=== PATIENT | male | born 1950 | race Caucasian/White ===

== ENCOUNTER 2023-10-19 18:22 | Observation (INO) | payer OTHER ==
[2023-10-19 20:34] LABS: BASO % 0.9 % (0-2.0); EOS % 0.9 % (0-4.5); HEMATOCRIT 44.9 % (35.4-49); HEMOGLOBIN 15.2 GM/dL (11.7-16.9); MCH 29.8 pg (25.7-33.7); MCHC 33.9 g/dl (32.0-35.9); MEAN CELL VOLUME 87.9 fl (80-96); MEAN PLT VOLUME 9.6 fl (7.5-11.1); MONO % 8.4 % (3.8-10.2); NEUT % 61.8 % (42.8-82.8); PLATELET COUNT 358 10^3/uL (134-434); RBC 5.11 M/mm3 (4.00-5.60); RDW 14.5 % (11.9-15.9); WHITE BLOOD COUNT 14.5 K/mm3 (4.0-10.0)
[2023-10-19 21:13] LABS: POTASSIUM 4.2 mmol/L (3.5-5.1)
[2023-10-19 21:16] LABS: CALCIUM 9.9 mg/dL (8.5-10.1)
[2023-10-19 21:17] LABS: ALBUMIN 3.7 g/dl (3.4-5.0)
[2023-10-19 21:20] LABS: CREATININE 1.3 mg/dL (0.55-1.3)
[2023-10-19 21:21] LABS: BILIRUBIN,TOTAL 0.5 mg/dL (0.2-1); TOT PROT 6.9 g/dl (6.4-8.2)
[2023-10-20] MEDS ORDERED: APIXABAN 5 MG TABLET ONE (00:11)
[2023-10-20] MEDS ORDERED: METOPROLOL TARTRATE 25 MG TABLET (FP) ONE (00:11)
[2023-10-20] MEDS: APIXABAN 5 MG TABLET PO SCH (00:24)
[2023-10-20] MEDS: METOPROLOL TARTRATE 25 MG TABLET (FP) PO SCH ×2 (00:24→21:14)
[2023-10-20] MEDS: INSULIN ASPART SLIDING SCALE (NOVOLOG) 1 VIAL SQ SCH (07:25)
[2023-10-20 07:46] LABS: BASO % 1.2 % (0-2.0); EOS % 2.5 % (0-4.5); HEMATOCRIT 42.9 % (35.4-49); HEMOGLOBIN 14.7 GM/dL (11.7-16.9); LYMPH % 44.2 % (8-40); MCH 29.9 pg (25.7-33.7); MCHC 34.2 g/dl (32.0-35.9); MEAN CELL VOLUME 87.3 fl (80-96); MEAN PLT VOLUME 8.5 fl (7.5-11.1); MONO % 8.6 % (3.8-10.2); NEUT % 43.5 % (42.8-82.8); PLATELET COUNT 340 10^3/uL (134-434); RBC 4.91 M/mm3 (4.00-5.60); WHITE BLOOD COUNT 11.2 K/mm3 (4.0-10.0)
[2023-10-20 08:02] LABS: CHLORIDE 103 mmol/L (98-107); POTASSIUM 3.7 mmol/L (3.5-5.1); SODIUM 139 mmol/L (136-145)
[2023-10-20 08:04] LABS: ANION GAP 5 mmol/L (4-13); CALCIUM 9.1 mg/dL (8.5-10.1); CO2 31 mmol/L (21-32)
[2023-10-20 08:05] LABS: GLUCOSE,RANDOM 100 mg/dL (74-106)
[2023-10-20 08:07] LABS: CREATININE 0.7 mg/dL (0.55-1.3)
[2023-10-20] MEDS: TAMSULOSIN HCL 0.4 MG CAP PO SCH (10:45)
[2023-10-20] MEDS: DEXTROSE 5%-NORMAL SALINE 1,000 ML IV SCH (10:46)
[2023-10-20] MEDS: DIVALPROEX NA *ER* EXTEND REL 500 MG TABLET.SA (FP) PO SCH ×2 (11:17→21:25)
[2023-10-20 11:59] VITALS: BMI 29.7
[2023-10-20 13:35] LABS: ERYTHROCYTE SEDIMENTATION RATE 2 mm/hr (0-20)
[2023-10-20] MEDS: DOXYCYCLINE INJECTION 100 MG in DEXTROSE 5%-WATER 100 ML IVPB SCH (14:22)
[2023-10-20 14:51] LABS: URINE APPEARANCE CLEAR; URINE BILIRUBIN NEGATIVE (NEGATIVE); URINE COLOR YELLOW; URINE GLUCOSE (UA) 3+ (NEGATIVE); URINE KETONE NEGATIVE (NEGATIVE); URINE LEUK ESTERASE NEGATIVE (NEGATIVE); URINE NITRITE NEGATIVE (NEGATIVE); URINE PROTEIN NEGATIVE (NEGATIVE); URINE UROBILINOGEN 0.2 mg/dL (0.2-1.0)
[2023-10-20] MEDS: ATORVASTATIN CA 80 MG TABLET (FP) PO SCH (21:13)
[2023-10-20] MEDS: NABUMETONE 750 MG TABLET PO SCH (21:26)
[2023-10-20] MEDS ORDERED: DIVALPROEX NA *ER* EXTEND REL 500 MG TABLET.SA (FP) PO SCH (22:00)
[2023-10-20] MEDS ORDERED: GABAPENTIN 300 MG CAPSULE PO SCH (22:00)
[2023-10-21 08:52] LABS: HEMATOCRIT 44.2 % (35.4-49); HEMOGLOBIN 15.4 GM/dL (11.7-16.9); MCH 30.5 pg (25.7-33.7); MCHC 34.9 g/dl (32.0-35.9); MEAN CELL VOLUME 87.3 fl (80-96); MEAN PLT VOLUME 9.1 fl (7.5-11.1); PLATELET COUNT 318 10^3/uL (134-434); RBC 5.06 M/mm3 (4.00-5.60); RDW 14.9 % (11.9-15.9)
[2023-10-21 09:22] LABS: POTASSIUM 4.1 mmol/L (3.5-5.1)
[2023-10-21] MEDS: LOSARTAN POTASSIUM 50 MG TABLET PO SCH (09:23)
[2023-10-21 09:32] LABS: ALBUMIN 3.1 g/dl (3.4-5.0); BLOOD UREA NITROGEN 14.4 mg/dL (7-18); CALCIUM 9.1 mg/dL (8.5-10.1); MAGNESIUM 1.7 mg/dL (1.8-2.4)
[2023-10-21 09:35] LABS: CREATININE 0.6 mg/dL (0.55-1.3)
[2023-10-21 09:36] LABS: BILIRUBIN,TOTAL 0.6 mg/dL (0.2-1); TOT PROT 5.8 g/dl (6.4-8.2)
[2023-10-21] MEDS: MAGNESIUM SULF 50% (8.12 MEQ/2 ML-1 GM VIAL) IVPB ONE (13:03)
[2023-10-21] MEDS: FLUCONAZOLE 100 MG/NS 50 ML IVPB ONE (13:59)
[2023-10-22] MEDS: MELATONIN 5 MG TABLETS PO PRN (02:25)
[2023-10-23 10:20] LABS: POTASSIUM 4.5 mmol/L (3.5-5.1)
[2023-10-23 10:21] LABS: BASO % 2.1 % (0-2.0); EOS % 3.9 % (0-4.5); HEMATOCRIT 47.4 % (35.4-49); HEMOGLOBIN 16.2 GM/dL (11.7-16.9); LYMPH % 42.7 % (8-40); MCH 30.6 pg (25.7-33.7); MCHC 34.1 g/dl (32.0-35.9); MEAN CELL VOLUME 89.6 fl (80-96); MEAN PLT VOLUME 9.7 fl (7.5-11.1); MONO % 8.8 % (3.8-10.2); NEUT % 42.5 % (42.8-82.8); PLATELET COUNT 263 10^3/uL (134-434); RBC 5.29 M/mm3 (4.00-5.60); WHITE BLOOD COUNT 8.7 K/mm3 (4.0-10.0)
[2023-10-23 10:24] LABS: BLOOD UREA NITROGEN 13.3 mg/dL (7-18)
[2023-10-23 10:27] LABS: ALBUMIN 3.3 g/dl (3.4-5.0); CALCIUM 8.9 mg/dL (8.5-10.1); CREATININE 0.7 mg/dL (0.55-1.3)
[2023-10-23 10:29] LABS: BILIRUBIN,TOTAL 0.8 mg/dL (0.2-1); TOT PROT 6.3 g/dl (6.4-8.2)
[2023-10-23 12:19] VITALS: RESP 16
[2023-10-23 12:20] VITALS: BP 148/66; PULSE 74; TEMP 98.1
== END 2023-10-23 12:14 | disposition home or self-care (01) ==
LOC: JER 18:22 → JERBED 22:04 → J6S 10-20 10:38
PROVIDERS: ADMIT Internal Medicine; ATTEND Family Medicine
PROC: 0DJ08ZZ Inspection of Upper Intestinal Tract, Via Natural or Artificial Opening Endoscopic (ICD-10-PCS; principal; 2023-10-19)
PROC: 3E0337Z Introduction of Electrolytic and Water Balance Substance into Peripheral Vein, Percutaneous Approach (ICD-10-PCS; 2023-10-19)
PROC: 3E03329 Introduction of Other Anti-infective into Peripheral Vein, Percutaneous Approach (ICD-10-PCS; 2023-10-19)
PROC: 3E033GC Introduction of Other Therapeutic Substance into Peripheral Vein, Percutaneous Approach (ICD-10-PCS; 2023-10-19)
DX: R13.10 Dysphagia, unspecified (principal); J38.5 Laryngeal spasm; Z79.01 Long term (current) use of anticoagulants; K57.90 Diverticulosis of intestine, part unspecified, without perforation or abscess without bleeding; G43.909 Migraine, unspecified, not intractable, without status migrainosus; I10 Essential (primary) hypertension; A69.20 Lyme disease, unspecified; E78.5 Hyperlipidemia, unspecified; D72.829 Elevated white blood cell count, unspecified; E11.9 Type 2 diabetes mellitus without complications; K86.9 Disease of pancreas, unspecified; Z86.73 Personal history of transient ischemic attack (TIA), and cerebral infarction without residual deficits
CPT/HCPCS: 36415; 71046-TC-FY; 74230-TC-FY; 80048; 80053; 81003; 82962; 83036; 83735; 85025; 85027; 85651; 86140; 86618; 87086; 92611-GN; 93005; 93010; 96361; 96365; 96367; 96375; 97116-GP; 99285-25; G0378

== ENCOUNTER 2023-10-30 22:47 | Emergency (ER) | payer OTHER ==
[2023-10-30 22:53] VITALS: BP 168/90; PULSE 102; RESP 18; TEMP 97.6; BMI 29.4
[2023-10-30] MEDS ORDERED: ACETAMINOPHEN INJECTION 100 ML IVPB ONE (23:33)
[2023-10-30] MEDS ORDERED: ONDANSETRON 4 MG/2 ML VIAL ONE (23:33)
[2023-10-30 23:39] LABS: HEMATOCRIT 44.8 % (35.4-49); HEMOGLOBIN 15.2 GM/dL (11.7-16.9); MCHC 33.9 g/dl (32.0-35.9); MEAN CELL VOLUME 88.6 fl (80-96); MEAN PLT VOLUME 9.2 fl (7.5-11.1); PLATELET COUNT 271 10^3/uL (134-434); RBC 5.06 M/mm3 (4.00-5.60); RDW 14.8 % (11.9-15.9); WHITE BLOOD COUNT 20.9 K/mm3 (4.0-10.0)
[2023-10-30] MEDS: ACETAMINOPHEN 1000 MG/100 ML BAG IVPB ONE (23:41)
[2023-10-30] MEDS: ONDANSETRON 4 MG/2 ML VIAL IVPUSH ONE (23:41)
[2023-10-31 00:07] LABS: POTASSIUM 3.8 mmol/L (3.5-5.1)
[2023-10-31 00:09] LABS: CALCIUM 9.3 mg/dL (8.5-10.1)
[2023-10-31 00:10] LABS: ALBUMIN 3.9 g/dl (3.4-5.0); BLOOD UREA NITROGEN 17.4 mg/dL (7-18)
[2023-10-31 00:13] LABS: CREATININE 0.8 mg/dL (0.55-1.3)
[2023-10-31 00:15] LABS: TOT PROT 6.9 g/dl (6.4-8.2)
[2023-10-31 00:34] LABS: URINE APPEARANCE CLEAR; URINE BILIRUBIN NEGATIVE (NEGATIVE); URINE COLOR YELLOW; URINE GLUCOSE (UA) 3+ (NEGATIVE); URINE KETONE 1+ (NEGATIVE); URINE LEUK ESTERASE NEGATIVE (NEGATIVE); URINE NITRITE NEGATIVE (NEGATIVE); URINE PROTEIN NEGATIVE (NEGATIVE); URINE UROBILINOGEN 0.2 mg/dL (0.2-1.0)
== END 2023-10-31 06:36 | disposition home or self-care (01) ==
LOC: JER 22:47
PROC: 3E033NZ Introduction of Analgesics, Hypnotics, Sedatives into Peripheral Vein, Percutaneous Approach (ICD-10-PCS; principal; 2023-10-30)
PROC: 3E033GC Introduction of Other Therapeutic Substance into Peripheral Vein, Percutaneous Approach (ICD-10-PCS; 2023-10-30)
DX: K59.00 Constipation, unspecified (principal); R33.9 Retention of urine, unspecified; R14.0 Abdominal distension (gaseous); R10.13 Epigastric pain; R10.30 Lower abdominal pain, unspecified; R30.0 Dysuria
CPT/HCPCS: 36415; 74177-TC; 80053; 81003; 85025; 87086; 99285-25; J0131; Q9967